=== PATIENT | female | born 1960 | race Caucasian/White ===

== ENCOUNTER 2017-11-05 08:59 | Outpatient (CLI) | payer OTHER | END 2017-11-05 09:00 | disposition home or self-care (01) | LOC: BICMAMMO 08:59 | PROVIDERS: ATTEND Obstetrics & Gynecology | DX: Z12.31 Encounter for screening mammogram for malignant neoplasm of breast (principal) | CPT/HCPCS: 77063; 77067 ==

== ENCOUNTER 2018-12-10 12:59 | Outpatient (CLI) | payer OTHER ==
--- NOTE | 2018-12-10 13:51 | MMO ---
Bilateral MAMMO Bilat Screen [facility]. CLINICAL HISTORY: Patient is 58 years old and is seen for screening. The patient has no family history of breast cancer. The patient has no personal history of cancer. VIEWS: The views performed were: bilateral craniocaudal with tomosynthesis and bilateral mediolateral oblique with tomosynthesis. FILMS COMPARED: The present examination has been compared to prior imaging studies performed at [facility] [place] on 06/30/2013, 08/25/2015, 08/30/2016 and 11/05/2017, and at [facility] [place] on 11/28/2010 and 04/28/2012. MAMMOGRAM FINDINGS: The breasts are heterogeneously dense, which could obscure a lesion on mammography. Finding 1: Benign calcifications are noted bilaterally. Finding 2: There is a mass in the left mid breast. IMPRESSION: FINDING 1: FINDINGS IN BOTH BREASTS ARE BENIGN. FINDING 2: FINDING IN THE LEFT BREAST REQUIRES ADDITIONAL EVALUATION. AN ULTRASOUND EXAM IS RECOMMENDED. THE RESULTS OF THIS EXAM WERE SENT TO THE PATIENT. ACR BI-RADS Category 0 - Incomplete: Need additional imaging evaluation. [facility] will notify the patient of the need for additional imaging services. MAMMOGRAPHY NOTE: 1. A negative mammogram report should not delay a biopsy if a dominant of clinically suspicious mass is present. 2. Approximately 10% to 15% of breast cancers are not detected by mammography. 3. Adenosis and dense breasts may obscure an underlying neoplasm.
== END 2018-12-10 13:00 | disposition home or self-care (01) ==
LOC: BICMAMMO 12:59
PROVIDERS: ATTEND Obstetrics & Gynecology
DX: Z12.31 Encounter for screening mammogram for malignant neoplasm of breast (principal)
CPT/HCPCS: 77063; 77067

== ENCOUNTER 2018-12-17 15:40 | Outpatient (CLI) | payer OTHER ==
--- NOTE | 2018-12-17 16:10 | ULT ---
LIMITED LEFT BREAST ULTRASOUND: 12/17/18 PROVIDED CLINICAL HISTORY: Abnormal mammogram. FINDINGS: Limited sonographic interrogation of the left breast was performed in the region of mammographic conc yoly. There is a 9 mm simple cyst in this region, correlating with the mammogram finding. No concernin g sonographic findings are evident. IMPRESSION: BIRADS 2: Benign Finding(s) Routine annual screening mammography (for women over age 40). POS: OFF
== END 2018-12-17 15:41 | disposition home or self-care (01) ==
LOC: BICULT 15:40
PROVIDERS: ATTEND Obstetrics & Gynecology
DX: N63.20 Unspecified lump in the left breast, unspecified quadrant (principal)

== ENCOUNTER 2019-07-30 08:35 | Outpatient (CLI) | payer OTHER ==
--- NOTE | 2019-07-30 09:57 | RAD ---
CERVICAL SPINE AP AND LATERAL AND STANDARD: HISTORY: M54.2, neck pain. COMPARISON: None. FINDINGS: ACDF hardware at C6-C7 with fusion of the disk space. Advanced C5-6 disk space narrowing with bridgi ng anterior osteophyte. High-grade facet arthropathy at C5-C7. There is 3 mm C4 over C6 anterolisthesis due to facet arthrop athy. No hardware complication. Open mouth odontoid view is normal. IMPRESSION: Advanced degenerative change as described just above the anterior cervical diskectomy and fusion fixa tion along with grade I C4 over C5 anterolisthesis, degenerative in nature due to facet arthropathy. POS: CET
== END 2019-07-30 08:36 | disposition home or self-care (01) ==
LOC: BICRAD 08:35
PROVIDERS: ATTEND Physician Assistant
DX: M54.2 Cervicalgia (principal); M47.812 Spondylosis without myelopathy or radiculopathy, cervical region; M43.10 Spondylolisthesis, site unspecified; M12.88 Other specific arthropathies, not elsewhere classified, other specified site; Z98.1 Arthrodesis status; Z98.890 Other specified postprocedural states
CPT/HCPCS: 72040

== ENCOUNTER 2020-03-08 09:13 | Outpatient (CLI) | payer OTHER ==
--- NOTE | 2020-03-08 11:36 | RAD ---
LUMBAR SPINE 2 VIEWS: HISTORY: Bilateral leg weakness. FINDINGS/IMPRESSION: There is minimal anterolisthesis of L4 over L5. No compression fracture or bony destruction is seen. Mild degenerative changes are present. POS: JAEL
== END 2020-03-08 09:14 | disposition home or self-care (01) ==
LOC: BICRAD 09:13
PROVIDERS: ATTEND Physician Assistant
DX: R29.898 Other symptoms and signs involving the musculoskeletal system (principal); M43.16 Spondylolisthesis, lumbar region; M47.816 Spondylosis without myelopathy or radiculopathy, lumbar region
CPT/HCPCS: 72100

== ENCOUNTER 2021-06-08 08:49 | Outpatient (CLI) | payer OTHER | END 2021-06-08 08:50 | disposition home or self-care (01) | LOC: BICMAMMO 08:49 | PROVIDERS: ATTEND Obstetrics & Gynecology | DX: N63.20 Unspecified lump in the left breast, unspecified quadrant (principal) ==

== ENCOUNTER 2023-09-23 14:24 | Outpatient (CLI) | payer OTHER | END 2023-09-23 14:25 | disposition home or self-care (01) | LOC: BICRAD 14:24 | PROVIDERS: ATTEND Family Medicine | DX: M25.532 Pain in left wrist (principal) ==

== ENCOUNTER 2023-09-30 16:00 | Outpatient (CLI) | payer OTHER | END 2023-09-30 16:01 | disposition home or self-care (01) | LOC: SLEEPLAB 16:00 | PROVIDERS: ATTEND Family Medicine | DX: R06.83 Snoring (principal); R53.83 Other fatigue; G47.00 Insomnia, unspecified | CPT/HCPCS: 95800 ==

== ENCOUNTER 2023-10-14 10:40 | Outpatient (CLI) | payer OTHER | END 2023-10-14 10:41 | disposition home or self-care (01) | LOC: BICMAMMO 10:40 | PROVIDERS: ATTEND Obstetrics & Gynecology | DX: Z12.31 Encounter for screening mammogram for malignant neoplasm of breast (principal) | CPT/HCPCS: 77063; 77067 ==

== ENCOUNTER 2023-12-27 11:04 | Emergency (ER) | payer OTHER ==
[2023-12-27 11:42] LABS: #Basophils 0.03 10x3/uL (0.0-0.2); %Basophils 0.5 % (0.0-1.0); %Eosinophils 1.3 % (0.0-10.0); %Lymphocytes 34.6 % (21.0-51.0); %Monocytes 5.7 % (0.0-10.0); %Neutrophils 57.7 % (42.0-75.0); Hemoglobin 13.5 g/dL (12.0-16.0); Mean Corpuscular HGB CONC 32.9 g/dL (32.0-36.0); Mean Platelet Volume 9.4 fL (7.4-10.4); Platelet Count 242 10x3/uL (130-400); RBC Distribution Width 14.2 % (11.5-14.5); Red Blood Cell (RBC) Count 4.66 mill/uL (4.20-5.40)
[2023-12-27 11:46] LABS: Bilirubin Negative (Negative); Blood, Urine Negative (Negative); Glucose, Urine (Dipstick) Negative (Negative); Ketone, Urine Negative (Negative); Leukocyte Negative (Negative); Nitrite Negative (Negative); Protein, Urine (Dipstick) Negative (Neg-Trace); Urobilinogen 0.2 mg/dL (Less than 2)
[2023-12-27 11:49] LABS: Clarity Clear (Clear)
[2023-12-27 11:50] LABS: Bacteria/HPF None Seen HPF (None Seen); CAUTI Indications for Culture Dysuria,urgency,freq; RBC/HPF 0-3 HPF (0-3); Squamous Epithelial None Seen HPF (0-3); WBC/HPF 0-3 HPF (0-3)
[2023-12-27 11:52] LABS: Urine Culture Reflex No No
[2023-12-27 12:09] LABS: Troponin I Less than 0.010 ng/mL (< 0.028)
[2023-12-27 12:11] LABS: ALT (SGPT) 11 U/L (8-55); AST (SGOT) 18 U/L (5-34); Alkaline Phosphatase 69 U/L (40-110); Anion Gap 14 mmol/L (10-20); BUN (Urea Nitrogen) 13 mg/dL (9.8-20.1); Bilirubin, Total 0.8 mg/dL (0.2-1.2); Calc. Creatinine Clearance 0 mL/min (70-130); Calcium 10.4 mg/dL (7.8-10.44); Carbon Dioxide 27 mmol/L (23-31); Chloride 102 mmol/L (98-107); Estimated GFR 89; Globulin 3.5 g/dL (2.4-3.5); Glucose 89 mg/dL (80-115); Potassium 3.9 mmol/L (3.5-5.1); Protein, Total 7.5 g/dL (5.8-8.1); Sodium 139 mmol/L (136-145)
== END 2023-12-27 13:22 | disposition home or self-care (01) ==
LOC: ERS 11:04
DX: R20.2 Paresthesia of skin (principal); Y92.69 Other specified industrial and construction area as the place of occurrence of the external cause
CPT/HCPCS: 36415; 80053; 81001; 84484; 85025; 93005